=== PATIENT | female | born 1965 | race Caucasian/White ===

== ENCOUNTER 2017-11-29 11:38 | Emergency (ER) | payer BC ==
[~2017-11-29] VITALS: Ht 154.9 cm; Wt 61.6 kg
[~2017-11-29 11:38] MED LIST: MECLIZINE HCL25 MG PO
[2017-11-29 12:13] LABS: HEMOGLOBIN 13.4 G/DL (11.9-15.5); MCH 29.8 PG (29.0-34.0); MCHC 34.4 G/DL (30.0-36.0); MCV 86.9 FL (83-99); PLATELET COUNT 339 K/uL (156-360); RBC DIS.WIDTH-CV 13.6 % (11.8-14.6); RBC DIS.WIDTH-SD 43.1 % (39-53); RED BLOOD COUNT 4.49 M/uL (3.80-5.20); WHITE BLOOD COUNT 6.8 K/uL (4.1-10.2)
[2017-11-29 12:22] LABS: CHLORIDE 106 mEq/L (99-109); POTASSIUM 4.3 mEq/L (3.7-5.4); SODIUM 141 mEq/L (136-147)
[2017-11-29 12:23] LABS: GLUCOSE 97 mg/dL (70-99)
[2017-11-29 12:27] LABS: CREATININE 0.8 mg/dL (0.6-1.3); GFR ESTIMATE (CALCULATED) > 59 mL/min/
[2017-11-29 12:28] LABS: UREA NITROGEN (BUN) 10 mg/dL (9-23)
[2017-11-29] MEDS ORDERED: VYVANSE30 MG PO (15:20)
[2017-11-29] MEDS ORDERED: EXCEDRIN MIGRA1 EAC3 PO (15:21)
[2017-11-29 15:30] VITALS: BP 121/88
[2017-11-29] MEDS ORDERED: MOTRIN800 MG PO (15:52)
== END 2017-11-29 16:17 | disposition home or self-care (01) ==
LOC: EME 11:38
DX: R55 Syncope and collapse (principal); S30.0XXA Contusion of lower back and pelvis, initial encounter; M25.531 Pain in right wrist; W18.30XA Fall on same level, unspecified, initial encounter; F17.200 Nicotine dependence, unspecified, uncomplicated; Z90.49 Acquired absence of other specified parts of digestive tract; Z88.2 Allergy status to sulfonamides
CPT/HCPCS: 70450; 71046; 72100; 72220; 73110; 80048; 85027; 93005; 99281; 99285